=== PATIENT | female | born 1960 | race Caucasian/White ===

== ENCOUNTER 2023-09-22 19:53 | Observation (INO) | payer OTHER, SELFPAY ==
[2023-09-22 17:48] VITALS: BP 159/62
[2023-09-22 18:11] LABS: INR 0.97; PT 12.7 Sec (11.4-14.6)
[2023-09-22 18:12] LABS: % Basophils 0.5 % (0-2); % Eosinophils 0.6 % (0-6); % Immature Granulocytes 0.2 % (0-0.5); % Lymphocytes 27.3 % (20.5-51.1); % Neutrophils 65.4 % (42.2-75.2); Absolute Basophils 0.1 10^3/uL (0-0.2); Absolute Eosinophils 0.1 10^3/uL (0-0.7); Absolute Lymphocytes 2.6 10^3/uL (1.2-3.4); Absolute Monocytes 0.6 10^3/uL (0.1-0.6); Absolute Neutrophils 6.2 10^3/uL (1.4-6.5); Hematocrit 38.9 % (37.0-47.0); Hemoglobin 13.2 g/dL (12.0-16.0); Mean Corp Hgb Conc. 33.9 g/dL (33.0-37.0); Mean Corpuscular Hgb 31.2 pg (27.0-31.0); Mean Platelet Volume 10.5 fL (7.4-10.4); Nucleated Red Blood Cells % 0 %; Platelet Count 230 10^3/uL (130-400); Red Blood Cell Count 4.23 10^6/uL (4.20-5.40); Red Cell Dist. Width 12.3 % (11.5-14.5); White Blood Cell Count 9.5 10^3/uL (4.8-10.8)
[2023-09-22 18:15] LABS: ALT (SGPT) 25 U/L (0-35); AST (SGOT) 31 U/L (14-36); Alkaline Phosphatase 81 U/L (38-126); Blood Urea Nitrogen 14 mg/dl (7-17); Calcium 9.9 mg/dl (8.4-10.2); Carbon Dioxide 26 mmol/L (22-30); Chloride 105 mmol/L (98-107); Glucose 96 mg/dl (70-99); Sodium 140 mmol/L (135-145); Total Bilirubin 1.3 mg/dl (0.2-1.3); Total Protein 7.5 g/dl (6.3-8.2); eGFR > 60.00
[2023-09-22 18:16] LABS: Lipase 62 U/L (23-300)
--- NOTE | 2023-09-22 19:07 | ED.GENMED ---
History of Present Illness
General
Chief Complaint: Rectal Bleeding
Source: patient
Exam Limitations: none
Time Seen by Provider: 09/22/23 18:55
Nursing documentation reviewed up to this point in time: agreed with
History of Present Illness
History of Present Illness:
Patient to ED for eval of rectal bleding. States she developed severe abominal pain last PM. No n/v/d. States pain diminished today but now reports rectal bleeding. She states she has the sensation that she needs to pass stool but is only
passing blood. Has had 4 episodes today. Last episode was approx 2 hours ago. No blood clots. No prior history of same. Brought to ED by spouse for eval. Last colonoscopy 1 year ago, normal
Past History
Past History
ED Past Medical History: HTN and Other (MS lesions on brain, following with neuro)
ED Past Surgical History: Gynecological (D&C) and Other (lumpectomy)
Social History
Tobacco: Non-smoker
Alcohol: Occasional
Drug: None
Personal:
Living: with family
Review of Systems
Review of Systems
Allergies reviewed?: Yes
All Other Systems: ROS reviewed and negative except as documented in HPI and ROS
Constitutional: Reports no symptoms
EENT: Reports no symptoms
Respiratory: Reports no symptoms
Cardiac: Reports no symptoms
ABD/GI: Reports abdominal pain and other (rectal bleeding)
: Reports no symptoms
Musculoskeletal: Reports no symptoms
Skin: Reports no symptoms
Neurological: Reports no symptoms
Psychiatric: Reports no symptoms
Phy Exam
General Physical Exam
General Presentation: well appearing and mild distress
General age: appears stated age
General Skin: warm and dry
General Habitus: normal
General Mental: alert
Gastrointestinal Exam
Gastrointestinal Exam: normal bowel sounds, soft, no organomegaly, no pulsatile mass, non distended and no cva tenderness
Palpation: generalized: Minimal tenderness
Rectal Exam: normal external exam, normal sphincter tone, hemorrhoids and no stool
Stool: red
Guaiac Status: grossly bloody - positive
Musculoskeletal Exam
Musculoskeletal Exam: full ROM and neuro vasc intact
Skin Exam
Skin Exam: normal color, warm/dry and no rash
Psychiatric Exam
Psychiatric Exam: normal mood/affect
Course
Orders/Labs/Results
Orders:
Orders
09/22/23 Dinner
NPO
Allow oral meds: Yes
Allow clear liquids: Sips of Clears
09/22/23 17:54
Type+Screen Urgent
Complete Blood Count/With Diff Urgent
Comprehensive Metabolic Panel Urgent
Lipase Urgent
Prothrombin Time Urgent
09/22/23 19:14
0.9% Sodium Chloride 1000 ml [Nss] 1,000 ml IV BOLUS
09/22/23 19:41
Admit/Transfer Patient As Directed
Co-Sign Provider:
Level of Care: Observation services
Assign to:: Medical/Surgical
Physician / Group: david
Diagnosis: hemorrhagic colitis
Code Status As Directed
Resuscitation Status: Full Code
PRN Pain Medication Management As Directed
May give lesser potent ordered pain med per pt: Yes
preference::
Protocol:: Medication orders for pain may be administered in a
manner that supports deferring to patient preference
when the pt is:
- Requesting an ordered lesser potent pain medication.
Least to most potent pain medications are defined
as: acetaminophen < NSAID < tramadol < opioids
(morphine, oxycodone, hydromorphone).
- Requesting a lesser dose of the same medication IF
ORDERED.
- Requesting a less intrusive route of administration
if both routes are prescribed by the provider (PO <
IV).
09/22/23 19:42
Norovirus by PCR Urgent
NIKOLAS Source: Feces/Stool
Specimen Description:
Stool Culture Urgent
NIKOLAS Source: Feces/Stool
Specimen Description:
09/22/23 20:41
Acetaminophen [Tylenol] 650 mg PO Q4HPRN PRN
09/22/23 20:41
Activity As Directed
Activity Level: As Tolerated
Pneumatic Compression Sleeves As Directed
Type: Knee high
Vital Signs As Directed
Frequency: Per unit guidelines
DX Deep Vein Thrombosis Video Routine
09/22/23 22:00
Lisinopril [Zestril] 5 mg PO HS
Multivitamin [Theragran] 1 tablet PO HS
Nortriptyline [Pamelor] 25 mg PO HS
09/23/23 06:00
Complete Blood Count/With Diff IN AM
Comprehensive Metabolic Panel IN AM
Abnormal Lab Results
09/22/23
17:54
MCH 31.2 H pg
(27.0-31.0)
MPV 10.5 H fL
(7.4-10.4)
09/22/23 17:54
09/22/23 17:54
Vital Signs
Initial and Last Documented VS:
Initial Vital Signs
Temp Pulse Resp BP Pulse Ox
98.3 F 105 17 159/62 97
09/22/23 17:48 09/22/23 17:48 09/22/23 17:48 09/22/23 17:48 09/22/23 17:48
Last Documented Vital Signs
Temp Pulse Resp BP Pulse Ox
98.6 F 81 16 128/69 98
09/22/23 20:50 09/22/23 22:01 09/22/23 20:50 09/22/23 22:01 09/22/23 20:50
*Critical Care Note
Total Time (30-74mins, 75-104mins- exclusive of procedures): Not Applicable
ED Attending Note
-
Portions of this chart may have been created with voice recognition software.� Occasional wrong word or��sound alike� substitutions may have occurred due to the inherent limitations of voice recognition software.
Discharge Plan
Departure
Patient Disposition: Admit
Date of Disposition: 09/22/23
Time of Disposition: 19:12
Presentation/result/management discussed w/ accepting MD/DO: Hospitalist
Condition: Fair
Covid-19: Not Applicable
Discharge Problem:
Rectal bleeding
Interventions
Interventions:
*Risk Screen - Suicide Last Done: 09/22/23 20:53
*General Assessment Last Done: 09/22/23 19:13
*Neglect/Abuse Screening Last Done: 09/22/23 19:13
ED- Fall Risk Assessment Last Done: 09/22/23 19:13
*ED COVID-19 Vaccine History Last Done: 09/22/23 20:53
*Nursing Disposition Last Done: 09/22/23 20:35
TG-Xvsxwb-Yhuociwvbl Assessment Last Done: 09/22/23 19:13
ED- Cardiac Assessment Last Done: 09/22/23 19:13
ED- Pulmonary Assessment Last Done: 09/22/23 19:13
Discharge Date and Time
Discharge Date/Time: 09/22/23 20:44
[2023-09-22 19:13] VITALS: BMI 27.7
[2023-09-22] MEDS: NSS 1000 IV (19:19)
[2023-09-22 19:23] VITALS: BP 144/68
--- NOTE | 2023-09-22 19:44 | HPS.HSE ---
Family Physician
-
Family Physician:
Chief Complaint
-
rectal bleeding
History of Present Illness
63-year-old female past medical history of hemorrhoids, multiple sclerosis lesions on imaging, headaches, hypertension, breast cancer status postlumpectomy presenting with rectal bleeding. Patient was in her normal state of health until she went
out to dinner last night with her and several other family members. Only she and her ate the salad. She also had meatballs. Afterwards she developed abdominal pain across her lower belly that was severe and went to have a bowel
movement. She thinks she may have had watery diarrhea or loose stools although she was in so much pain she did not check the toilet. She had nausea. Her also had some nausea and loose stools.
Today the pain was significantly better but felt like she had to have a bowel movement but when she tried she passed bright red blood. She had 4 episodes total. She denied any loose stools or diarrhea today. She did have some chills. Her last
colonoscopy was 1 year ago which was unremarkable.
She denies smoking or alcohol use.
Medical History
Past Medical History
Past Medical History: Reports Other (hemorrhoids, multiple sclerosis lesions on imaging, headaches, hypertension, breast cancer status postlumpectomy)
Past Surgical History: Reports Other (lumpectomy )
Social History
Tobacco: Non-smoker
Alcohol: None
Drug: None
Family History
Family History: Not pertinent
Allergies / Home Medications
Allergies reflects when Allergies were last updated in [employer].
Home Medications with original date entered in [employer]
Allergy/Medication List:
Allergies
Allergy/AdvReac Type Severity Reaction Status Date / Time
No Known Allergies Allergy Unverified 09/22/23 17:48
Home Medications
famotidine 40 mg tablet 40 - 80 mg PO HS 09/22/23
fiber 1 tab PO HS 09/22/23
lisinopril 5 mg tablet 5 mg PO HS 09/22/23
nortriptyline 25 mg capsule 25 mg PO HS 09/22/23
therapeutic multivitamin 1 tab PO HS 09/22/23
Review of Systems
-
History Source: Patient
A 12 point ROS was completed and negative except as noted: Yes
Constitutional: Reports No Symptoms
EENT: Reports No Symptoms
Respiratory: Reports No Symptoms
Cardiac: Reports No Symptoms
Abdomen/GI: Reports See HPI
: Reports No Symptoms
Musculoskeletal: Reports No Symptoms
Skin: Reports No Symptoms
Neurological: Reports No Symptoms
Endocrine: Reports No Symptoms
Hematologic/Lymphatic: Reports No Symptoms
Psych: Reports No Symptoms
Physical Exam
Vital Signs
Vital Signs
Temp Pulse Resp BP Pulse Ox
98.3 F 105 17 144/68 99
09/22/23 17:48 09/22/23 17:48 09/22/23 17:48 09/22/23 19:23 09/22/23 19:23
Physical Exam
General: Well Developed, Well Nourished and No Apparent Distress
HEENT: NormoCephalic, Moist mucous membranes and Atraumatic
Respiratory: Clear
Cardiac: S1/S2 and Regular Rhythm; No Murmur or Rub
GI: Soft, Non Distended, Normal Bowel Sounds and Tender; No Organomegaly
Rectal: Deferred by Provider
Musculoskeletal: No Clubbing, No Cyanosis and No Edema
Skin: No Rash
Neuro: Nonfocal/grossly intact
Laboratory Results
-
09/22/23 17:54
09/22/23 17:54
Laboratory Results
PT 12.7 Sec (11.4-14.6) 09/22/23 17:54
INR 0.97 09/22/23 17:54
Total Bilirubin 1.3 mg/dl (0.2-1.3) 09/22/23 17:54
AST 31 U/L (14-36) 09/22/23 17:54
ALT 25 U/L (0-35) 09/22/23 17:54
Alkaline Phosphatase 81 U/L (38-126) 09/22/23 17:54
Lipase 62 U/L (23-300) 09/22/23 17:54
Data Reviewed
-
Lab Data: Labs Reviewed by me
Old Records: Reviewed
Impression/Plan
-
IMPRESSION:
PLAN:
# Hemorrhagic colitis
-Rectal exam showed hemorrhoids, grossly bloody heme positive stool
-IV fluids given
-Check stool culture, norovirus,
-N.p.o.
-Conservative treatment
-Hold off antibiotics
-CTA abdomen pelvis and GI consult if progressive bleeding
Multiple sclerosis lesions
-Not on treatment
History of headaches
-Continue nortriptyline
Essential hypertension
-Continue lisinopril
Full code
DVT prophylaxis�SCDs
NPO
[2023-09-22 20:00] VITALS: BP 122/67
[2023-09-22 20:50] VITALS: BP 132/83; BMI 27.1
--- NOTE | 2023-09-22 21:30 | PTCARENOTE ---
Received pt from ED into room 2122. Pt able to ambulate to bed without assistance. AAOx3. VSS. Denies pain. SCDs applied. at bedside. Oriented to room, resting comfortably in bed. No complaints at this time.
[2023-09-22] MEDS: THERAGRAN 1 TABLET PO (21:53)
[2023-09-22] MEDS: PEPCID 20 MG PO (21:54)
[2023-09-22] MEDS: PAMELOR 25 MG PO (21:54)
[2023-09-22] MEDS: ZESTRIL 5 MG PO (22:01)
[2023-09-23 00:05] VITALS: BP 116/68
[2023-09-23 06:43] LABS: % Basophils 0.5 % (0-2); % Eosinophils 1.2 % (0-6); % Immature Granulocytes 0.2 % (0-0.5); % Lymphocytes 26.1 % (20.5-51.1); % Monocytes 7.1 % (1.7-9.3); % Neutrophils 64.9 % (42.2-75.2); Absolute Eosinophils 0.1 10^3/uL (0-0.7); Absolute Lymphocytes 2.1 10^3/uL (1.2-3.4); Absolute Monocytes 0.6 10^3/uL (0.1-0.6); Absolute Neutrophils 5.2 10^3/uL (1.4-6.5); Hematocrit 35.5 % (37.0-47.0); Hemoglobin 12.1 g/dL (12.0-16.0); Mean Corp Hgb Conc. 34.1 g/dL (33.0-37.0); Mean Corpuscular Hgb 31.3 pg (27.0-31.0); Mean Platelet Volume 10.7 fL (7.4-10.4); Nucleated Red Blood Cells % 0 %; Platelet Count 189 10^3/uL (130-400); Red Blood Cell Count 3.86 10^6/uL (4.20-5.40); Red Cell Dist. Width 12.3 % (11.5-14.5)
[2023-09-23 07:10] LABS: ALT (SGPT) 19 U/L (0-35); AST (SGOT) 25 U/L (14-36); Alkaline Phosphatase 66 U/L (38-126); Blood Urea Nitrogen 12 mg/dl (7-17); Calcium 9.1 mg/dl (8.4-10.2); Carbon Dioxide 23 mmol/L (22-30); Chloride 108 mmol/L (98-107); Estimated Creatinine Clearance 66 ml/min; Glucose 76 mg/dl (70-99); Potassium 3.9 mmol/L (3.5-5.1); Sodium 139 mmol/L (135-145); Total Bilirubin 1.3 mg/dl (0.2-1.3); Total Protein 6.1 g/dl (6.3-8.2); eGFR > 60.00
[2023-09-23 07:15] VITALS: BP 129/65
--- NOTE | 2023-09-23 08:41 | W.PN.HOSP.TC ---
Today's Communication/Plan
-
CT abd/pelvis
CL diet
stool studies if able to provide sample
Assessment / Plan
Assessment / Plan
1. Lower GI bleed
Suspected colitis -ischemic versus infectious
-Rectal exam showed hemorrhoids, grossly bloody heme positive stool
-Patient initially had blood mixed stool although geraldine bleeding afterward
-Stool studies ordered for bacterial culture/norovirus. will add cdiff if clinical concern,
-Start on clear liquid diet as symptoms somewhat better
-CT abdomen pelvis with IV contrast ordered to check for colitis
-Hemoglobin trended down 1 point and 12 today, continue monitoring
2. Multiple sclerosis lesions on imaging
-Not on treatment
3. History of headaches
-Continue nortriptyline
4. Essential hypertension
-Continue lisinopril
Full code
DVT prophylaxis�SCDs
Total time spent : 53 mins
Anticipated Discharge: Within 24 hours
Subjective/Interval History
-
Date of Service: September 23, 2023
seen and examined
Abdominal pain is better
No nausea or vomiting overnight
No further BRBPR overnight. Patient have some urgency although no stool output
Objective Data
-
Labs:
Laboratory Results
09/23/23
05:03
WBC 8.0
Hgb 12.1
Hct 35.5 L
Plt Count 189
Sodium 139
Potassium 3.9
Chloride 108 H
Carbon Dioxide 23
BUN 12
Creatinine 0.8
Glucose 76
Calcium 9.1
Total Bilirubin 1.3
AST 25
ALT 19
Alkaline Phosphatase 66
Vital Signs:
Vital Signs
Temp Pulse Resp BP Pulse Ox
98.2 F 90 16 129/65 96
09/23/23 07:15 09/23/23 07:15 09/23/23 07:15 09/23/23 07:15 09/23/23 07:15
I&O
09/22/23 09/23/23 09/24/23
06:59 06:59 06:59
Intake Total 300 / 300
Balance 300 / 300
Review of Systems
-
Respiratory: Reports No Symptoms
Cardiac: Reports No Symptoms
Abdomen/GI: Reports No Symptoms
Physical Exam
-
General: No Apparent Distress and Comfortable
HEENT: Negative Oxygen
Respiratory: Clear to Auscultation
Cardiac: Regular Rhythm and S1/S2; Negative Murmur or Rub
GI: Soft, Nontender and Nondistended
Musculoskeletal: No Edema
Neuro: Awake, Alert, Oriented, No Motor Deficits and Nonfocal/Grossly Intact
Psych: Calm
[2023-09-23] MEDS: LR 1000 IV ×2 (09:33→23:35)
[2023-09-23] MEDS: OMNIPAQUE 50 ML PO (09:33)
[2023-09-23 15:29] VITALS: BP 135/70
--- NOTE | 2023-09-23 15:47 | CM ---
CM met with pt, spouse/Eliseo and son/Ricky bedside
They reside in a 2[address] with 2[facility], full flight to second floor
Pt is independent with her ADLs- denies use of DMEs
No financial insecurities
PCP- Phan Bell
Rx- [facility]
Pt has a [employer] plan, not [employer]
Alerted admissions
Pt is OBS- SERRANO completed verbally
Copy provided
Discharge Disposition- home, no needs anticipated
[2023-09-23] MEDS: FLAGYL 500 MG 100 IV ×2 (16:03→23:36)
[2023-09-23] MEDS: LEVAQUIN 100 IV (16:03)
[2023-09-23] MEDS: ZESTRIL 5 MG PO (21:01)
[2023-09-23] MEDS: PEPCID 20 MG PO (21:01)
[2023-09-23] MEDS: THERAGRAN 1 TABLET PO (21:01)
[2023-09-23] MEDS: PAMELOR 25 MG PO (21:01)
[2023-09-23 23:02] VITALS: BP 131/66
[2023-09-24 06:28] LABS: Hematocrit 32.5 % (37.0-47.0); Hemoglobin 11.3 g/dL (12.0-16.0); Mean Corp Hgb Conc. 34.8 g/dL (33.0-37.0); Mean Corpuscular Volume 89.3 fL (81.0-99.0); Mean Platelet Volume 10.6 fL (7.4-10.4); Platelet Count 192 10^3/uL (130-400); Red Blood Cell Count 3.64 10^6/uL (4.20-5.40); Red Cell Dist. Width 12.2 % (11.5-14.5); White Blood Cell Count 7.6 10^3/uL (4.8-10.8)
[2023-09-24 06:53] LABS: Blood Urea Nitrogen 10 mg/dl (7-17); Calcium 9.5 mg/dl (8.4-10.2); Carbon Dioxide 27 mmol/L (22-30); Chloride 107 mmol/L (98-107); Estimated Creatinine Clearance 52 ml/min; Glucose 86 mg/dl (70-99); Sodium 138 mmol/L (135-145); eGFR > 60.00
[2023-09-24 07:10] VITALS: BP 115/73
[2023-09-24 08:09] VITALS: BP 115/73
[2023-09-24] MEDS: FLAGYL 500 MG 100 IV (09:23)
[2023-09-24 12:40] VITALS: BP 127/73
[2023-09-24] MEDS: LR IV (12:41)
--- NOTE | 2023-09-24 12:43 | W.PN.HOSP.TC ---
Today's Communication/Plan
-
d/c home
Assessment / Plan
Assessment / Plan
1. Lower GI bleed
Acute colitis - infectious vs less likely ischemic
-Rectal exam showed hemorrhoids, grossly bloody heme positive stool
-Patient initially had blood mixed stool although geraldine bleeding afterward
-Stool studies ordered for bacterial culture/norovirus negative . will add cdiff if clinical concern,
-CT abdomen pelvis with IV contrast report as above. Showing descending and sigmoid colitis.
-No further episodes of bleeding.
-Patient be discharged on oral Levaquin and Flagyl course.
-Patient to follow-up with GI in office for colonoscopy in 4 to 6 weeks
2. Multiple sclerosis lesions on imaging
-Not on treatment
3. History of headaches
-Continue nortriptyline
4. Essential hypertension
-Continue lisinopril
Full code
DVT prophylaxis�SCDs
More than 30 minutes spent in discharge including
Final examination of the patient
Summarizing hospital stay
Instructions for continuing care to all relevant caregivers
Preparation of discharge records, prescriptions, and referral forms
Total time spent (in minutes): 38 mins
Anticipated Discharge: Today
Subjective/Interval History
-
Date of Service: September 24, 2023
no more bleeding overnight
denies of having problems
Objective Data
-
Labs:
Laboratory Results
09/24/23
05:43
WBC 7.6
Hgb 11.3 L
Hct 32.5 L
Plt Count 192
Sodium 138
Potassium 4.0
Chloride 107
Carbon Dioxide 27
BUN 10
Creatinine 1.0
Glucose 86
Calcium 9.5
Vital Signs:
Vital Signs
Temp Pulse Resp BP Pulse Ox
98.2 F 83 16 127/73 98
09/24/23 12:40 08/11/24 12:40 09/24/23 12:40 09/24/23 12:40 09/24/23 12:40
I&O
09/23/23 09/24/23 09/25/23
06:59 06:59 06:59
Intake Total 300 / 300 3335 / 3335 1255 / 1255
Balance 300 / 300 3335 / 3335 1255 / 1255
Review of Systems
-
Respiratory: Reports No Symptoms
Cardiac: Reports No Symptoms
Abdomen/GI: Reports No Symptoms
Physical Exam
-
General: No Apparent Distress and Comfortable
HEENT: Negative Oxygen
Respiratory: Clear to Auscultation
Cardiac: Regular Rhythm and S1/S2; Negative Murmur or Rub
GI: Soft, Nontender and Nondistended
Musculoskeletal: No Edema
Neuro: Awake, Alert, Oriented, No Motor Deficits and Nonfocal/Grossly Intact
Psych: Calm
--- NOTE | 2023-09-24 15:04 | W.DCSUMMARY ---
Discharge Summary
Discharge Data
Date of Admission: 09/22/23
Date of Discharge: 09/24/23
-
Pending Results: No
Hospital Course
Discharging Physician : Dr Jameel Nolasco
Disposition : Home
Primary care physician : Unknown
Principal Discharge diagnosis :
Acute colitis, presumed infectious
Lower gastrointestinal bleed
Chronic Discharge diagnosis :
Essential hypertension
Depression/anxiety
Hospital Course :
Patient is a 63-year-old female with no mentioned past medical history came to ER with acute onset abdominal pain episode of diarrhea containing blood. Symptoms were rapid onset with patient having new onset of diarrhea with blood mixed stool. No
reported fever. Patient was admitted for further monitoring in hospital. Stool test was ordered for bacterial culture/norovirus and out of which norovirus was negative. Final bacterial culture report is pending at time of discharge. A follow-up
CT abdomen pelvis was done which showed colitis involving distal transverse colon and descending colon. Patient was started on empiric antibiotic with which patient had improvement in symptoms. Patient was discharged on finishing course of
levofloxacin and Flagyl. Patient to follow-up with GI in office in 4 to 6 weeks for evaluation for colonoscopy.
Important imaging findings :
None
Procedure findings :
None
Discharge Plan
-
Patient Disposition: Home (Routine Discharge)
Discharge Diagnosis/Procedures: Acute colitis, Lower GI bleed
Condition: Fair
Diet: Regular
Activity: As tolerated
Driving Restrictions: No driving for 24 hours
Bathing Restrictions: OK to Shower
Referrals:
Ty Lemus MD [Active] - in four to six weeks
UNKNOWN - PT DOES,NOT KNOW [Family Provider] -
Prescriptions:
New
levofloxacin 750 mg tablet
750 mg PO DAILY Qty: 5 0RF
metronidazole 500 mg tablet
500 mg PO Q8H 5 Days Qty: 15 0RF
Continued
famotidine 40 mg tablet
40 - 80 mg PO HS
therapeutic multivitamin Tablet
1 tab PO HS
nortriptyline 25 mg capsule
25 mg PO HS
lisinopril 5 mg tablet
5 mg PO HS
fiber
1 tab PO HS
Discharge Orders:
Discharge Patient (As Directed); Ordered 09/24/23
Ordered By: Jameel Nolasco
Discharge Date and Time
Discharge Date/Time: 09/24/23 13:04
Print Language: EMIRATI
[2023-09-25 19:52] LABS: Hepatitis C Antibody Negative (Negative)
== END 2023-09-24 13:04 | disposition home or self-care (01) ==
LOC: 2 NORTH 19:53
PROVIDERS: ADMITTING PHYSICIAN Hospitalist; ATTENDING PHYSICIAN Hospitalist; EMERGENCY PHYSICIAN Emergency Medicine
DX: K62.5 Hemorrhage of anus and rectum (principal); R10.9 Unspecified abdominal pain; I10 Essential (primary) hypertension; G35 Multiple sclerosis; G93.89 Other specified disorders of brain; K64.9 Unspecified hemorrhoids; F32.A Depression, unspecified; F41.9 Anxiety disorder, unspecified; Z85.3 Personal history of malignant neoplasm of breast
CPT/HCPCS: 74177; 80048; 80053; 83690; 85025; 85027; 85610; 86803; 86850; 86900; 86901; 87045; 87046; 87427; 87798; 96360; 99284; G0378; Q9967